=== PATIENT | male | born 1970 | race Hispanic/Latino ===

== ENCOUNTER → 2019-05-10 | Outpatient (CLI) | payer OTHER ==
--- NOTE | 2019-05-10 09:54 | REP ---
Clinical: Right knee pain. Technique: AP, lateral, bilateral oblique and sunrise views of the right knee. Findings: Mild/early moderate tricompartmental osteoarthritic degenerative changes include spurring to the tibial spines, cortical irregularity and early osteophyte formation along the medial and lateral compartments as well as increase sclerosis along the posterior patellar margin with marginal patellar spurring and decreased patellofemoral joint space. Cathcart view also demonstrates fraying along the anterior patellar margin. No acute fracture dislocation. No obvious effusion. Impression: Mild/early moderate tricompartmental osteoarthritic degenerative changes. Electronically Signed by Taran Conway MD 05/10/2019 09:36 A
== END ==
LOC: M RAD 08:56
PROVIDERS: ATTEND Surgery
DX: M25.561 Pain in right knee (principal)

== ENCOUNTER 2020-09-13 06:00 | Day surgery (SDC) | payer OTHER ==
[~2020-09-13] VITALS: Ht 175.3 cm; Wt 121.6 kg
[~2020-09-13 06:00] MED LIST: LR 1,000 ML IV ONE; ceFAZolin SOD 2 GM in IV 1 EA IV ONE
[2020-09-13] MEDS ORDERED: dexameTHASONE 4 MG/ML 1ML VIAL (J1100 PER 1MG) As Ordered ONE (06:42)
[2020-09-13] MEDS ORDERED: BUPIVACAINE HCL 0.5% 30 ML VIAL As Ordered ONE (06:42)
[2020-09-13] MEDS ORDERED: LIDOCAINE 2% MDV 20ML VIAL As Ordered ONE (06:42)
[2020-09-13] MEDS ORDERED: NEOSPORIN GU IRRIG 20 ML VIAL As Ordered ONE (06:43)
[2020-09-13] MEDS ORDERED: ONDANSETRON 4MG/2ML VIAL As Ordered ONE (07:17)
[2020-09-13] MEDS ORDERED: LIDOCAINE 2% 100MG/5ML SDV (FOR ANES.) As Ordered ONE (07:17)
[2020-09-13] MEDS ORDERED: propofoL 200 MG/20 ML VIAL As Ordered ONE ×2 (07:17→08:15)
[2020-09-13] MEDS ORDERED: KETOROLAC 60MG 2ML VIAL As Ordered ONE (07:17)
[2020-09-13] MEDS ORDERED: fentaNYL 100 MCG/2 ML INJECTION (J3010) As Ordered ONE (07:18)
[2020-09-13] MEDS ORDERED: MIDAZOLAM INJ 2MG/2ML VIAL (J2250 PER 1MG) As Ordered ONE (07:18)
[2020-09-13] MEDS ORDERED: KETAMINE HCL 200 MG/20 ML VIAL As Ordered ONE (07:41)
[2020-09-13 09:40] VITALS: BP 130/83
--- NOTE | 2020-09-13 11:24 | RO ---
OPERATIVE NOTE DATE OF OPERATION: 09/13/2020 PREOPERATIVE DIAGNOSIS: Subungual exostosis, distal phalanx, left hallux. POSTOPERATIVE DIAGNOSIS: Subungual exostosis, distal phalanx, left hallux. PROCEDURE PERFORMED: Excision of subungual exostosis left hallux. SURGEON: Reynaldo Deluna DPM SWITCH CLEANER: None ANESTHESIA: Local, MAC. IRRIGATION: Dilute Bacitracin, Neomycin and Polymyxin B. HEMOSTASIS: Ankle pneumatic tourniquet at 250 mmHg for 21 minutes. ESTIMATED BLOOD LOSS: Less than 1 mL. DESCRIPTION OF PROCEDURE: On 09/13/2020 this 50-year-old male was taken from his hospital room to the operating room and placed on the operating table in supine position. Following induction of IV sedation and local regional anesthesia left lower extremity was prepped and draped in usual aseptic manner. Attention was directed to the patient's left foot where there was noted to be a prominence on the distal end of the left hallux distal to the nail plate. At this time a 2-3 cm incision was placed around the distal margin of the hallux. Dissection was carried down to the bone. The nailbed was then reflected in dorsal direction. The nail was noted to be in the way of the surgical reduction. Therefore, using a [place] elevator the nail plate was avulsed from the bed. Dissection was then carried in proximal manner exposing the subungual exostosis utilizing bone cutting forceps. The bone was removed. This appeared to have a cartilaginous cap consistent with osteochondroma/subungual exostosis. Utilizing a rongeur and handheld file the bone was rasped, wound was flushed with copious amounts of dilute Bacitracin, Neomycin, and Polymyxin B solution. Intraop C-arm image revealed resection of the exostosis. The nailbed was then brought to the skin margin and this was closed with 4-0 nylon in simple interrupted fashion. Gelfoam was then placed over the nailbed followed by compressive dressing consisting of Adaptic, 4 x 4s, Morales and Kerlix. Coban overlying wrap was then placed on the wound. Tourniquet was released, instantaneous capillary filling time was noted to the patient's left foot. The patient having apparently tolerated the surgical procedure well was taken from OR to the recovery room for further monitoring by the anesthesia department. Postoperative instructions were given upon discharge. KRISTI
== END 2020-09-13 09:43 | disposition home or self-care (01) ==
LOC: M SDC 06:00
PROVIDERS: ATTEND Podiatrist
DX: M89.8X7 Other specified disorders of bone, ankle and foot (principal); D16.32 Benign neoplasm of short bones of left lower limb; M79.675 Pain in left toe(s)
CPT/HCPCS: 28124; 76000; 88304; 88311; 97116; J0690; J1885; J2250; J2405; J3010